=== PATIENT | male | born 1945 | race Caucasian/White ===

== ENCOUNTER 2016-08-17 11:47 | Day surgery (SDC) | payer OTHER ==
--- NOTE | ~2016-08-17 | OP ---
Record Of Operation [facility] [address] [facility] [place]. [address] NAME: RUTH ANN GARCIA : 43 STATUS : REG [facility]#: [id number] AGE: 71 ADM/REG DATE : 08/17/16 MR#: [id number] REPORT SERV DATE: 08/17/16 DICTATED BY: JOSE CLEVELAND III DATE: 08/17/16 REPORT STATUS : Draft TRANSCRIBED BY: MODL DATE: 08/17/16 DATE OF PROCEDURE: 08/17/2016 PROCEDURE: Transrectal ultrasound biopsy of the prostate. PREOPERATIVE DIAGNOSIS: Elevated prostate specific antigen. POSTOPERATIVE DIAGNOSIS: Elevated prostate specific antigen. ANESTHESIA: MAC. DESCRIPTION OF PROCEDURE: Following induction with MAC anesthesia, the patient was in the left lateral position. The probe was placed. The prostate was scanned, measured approximately 36-40 mL. There were no definite hypoechoic areas. Biopsies were taken from the base, mid gland, and apex in a laterally directed fashion. There was a small amount of bleeding at the end of the case through the probe, but not excessive. He tolerated it well and will be taken to recovery room. OB/MODL Jose Cleveland III, M.D. / [id number] CC: Lorenzo Pollack III, M.D.
[~2016-08-17 11:47] MED LIST: *DENIES
[2016-08-17 12:16] LABS: HEMATOCRIT 44.5 % (40.0-51.0)
== END 2016-08-17 15:12 | disposition home or self-care (01) ==
LOC: SDC 11:47
PROVIDERS: Urology
PROC: 0VB08ZX Excision of Prostate, Via Natural or Artificial Opening Endoscopic, Diagnostic (ICD-10-PCS; principal; 2016-08-17 13:15)
DX: N41.0 Acute prostatitis (principal); N41.1 Chronic prostatitis; R97.20 Elevated prostate specific antigen [PSA]; Z88.8 Allergy status to other drugs, medicaments and biological substances; Z90.89 Acquired absence of other organs; Z98.890 Other specified postprocedural states
CPT/HCPCS: 76872; 76942; 85014; 85018; 88305; J2250; J2405; J3010